=== PATIENT | female | born 1980 | race Caucasian/White ===

== ENCOUNTER 2022-12-31 21:42 | Emergency (ER) | payer OTHER ==
[2022-12-31] MEDS ORDERED: Sodium Chloride 0.9% 2.5 ML Syringe FLUSH PRN (22:38)
[2022-12-31] MEDS ORDERED: ceFAZolin 2 GM in Sodium Chloride 0.9% 50 ML IV ONE (22:38)
[2022-12-31] MEDS ORDERED: Diphtheria/Tetanus Toxoids,Adult (Td) 0.5 ML Syringe IM ONE (22:38)
[2022-12-31] MEDS ORDERED: LORazepam 2 MG/ML SDV IVPUSH ONE (22:38)
[2022-12-31] MEDS ORDERED: Sodium Chloride 0.9% 20 ML SDV IV PRN (22:38)
[2022-12-31] MEDS ORDERED: Sodium Chloride 0.9% 10 ML Syringe FLUSH PRN (22:38)
[2022-12-31] MEDS ORDERED: Diphtheria,Pertussis(Acell),Tetanus Vaccine 0.5 ML Syringe IM ONE (22:45)
[2022-12-31 23:00] LABS: BASOPHILS PERCENT AUTO 0.1 % (0.0-1.5); EOSINOPHILS ABSOLUTE AUTO 0.2 K/uL (0.0-0.7); EOSINOPHILS PERCENT AUTO 1.6 % (0.0-7.0); HEMATOCRIT 42.2 % (36.0-46.0); HEMOGLOBIN 14.5 g/dL (12.0-16.0); LYMPHOCYTES ABSOLUTE AUTO 2.3 K/uL (0.6-2.4); MEAN CORPUSCULAR HEMOGLOBIN 31.9 pg (27.0-32.0); MEAN CORPUSCULAR HGB CONC 34.4 g/dL (31.0-37.0); MONOCYTES ABSOLUTE AUTO 0.3 K/uL (0.0-0.8); MONOCYTES PERCENT AUTO 3.5 % (0.0-15.0); NEUTROPHILS ABSOLUTE AUTO 7.1 K/uL (1.4-5.7); NEUTROPHILS PERCENT AUTO 71.8 % (48.0-80.0); NRBC ABSOLUTE 0 K/uL; PLATELET COUNT,PLT 245 K/uL (150-400); RED BLOOD CELL COUNT 4.54 M/uL (4.30-5.90); WHITE BLOOD CELL COUNT,WBC 9.83 K/uL (4.0-11.0)
[2022-12-31] MEDS ORDERED: Iopamidol 755 MG/ML 500 ML Multipack Bottle IVPUSH ONE (23:17)
[2022-12-31 23:23] LABS: A/G RATIO 1.1 (0.9-1.6); BILIRUBIN TOTAL 0.3 mg/dL (0.2-1.0); CALCIUM 8.4 mg/dL (8.5-10.1); CARBON DIOXIDE,CO2 24.3 mmol/L (21.0-32.0); CREATININE 0.7 mg/dL (0.6-1.0); EST CRCL DRUG DOSING (CG) 100.01 mL/min; POTASSIUM,K 3.4 mmol/L (3.5-5.1); PROTEIN TOTAL,TP 7.6 g/dL (6.4-8.2)
== END 2023-01-01 02:00 ==
LOC: MW.ED 21:42
DX: S02.91XA Unspecified fracture of skull, initial encounter for closed fracture (principal); S06.360A Traumatic hemorrhage of cerebrum, unspecified, without loss of consciousness, initial encounter; S02.40EA Zygomatic fracture, right side, initial encounter for closed fracture; J93.9 Pneumothorax, unspecified; F10.129 Alcohol abuse with intoxication, unspecified; Z23 Encounter for immunization; V86.55XA Driver of 3- or 4- wheeled all-terrain vehicle (ATV) injured in nontraffic accident, initial encounter; Y92.410 Unspecified street and highway as the place of occurrence of the external cause
CPT/HCPCS: 12004; 36415; 70450; 71260; 72125; 80053; 80307; 84703; 85025; 85610; 90471; 90715; 96365; 96375; 99291; J0690; J2060; J3490; Q9967